=== PATIENT | female | born 2000 | race Caucasian/White ===

== ENCOUNTER → 2019-11-20 12:16 | Outpatient (CLI) | payer OTHER, SELFPAY ==
--- NOTE | 2019-11-20 12:18 | DI.RAD.S_ITS ---
PROCEDURE: XR FINGER LT MIN 2V INDICATIONS: L 4th finger pain/swelling/TTP PIP joint s/p injury TECHNIQUE: AP hand, 2 views of the ring finger(s) acquired. COMPARISON: None. FINDINGS: Bones: No displaced fractures or dislocations. No suspicious bony lesions. No significant degenerative changes of the 4th digit are evident. Incidental note is made of ulna minus very dense, which is not well characterized but may measure up to 3 mm. Soft tissues: No suspicious soft tissue calcifications. No unexpected radiopaque foreign bodies are appreciated. No evidence of soft tissue air. IMPRESSION: 1. No acute fracture of the left 4th digit. 2. Ulnar minus variance. Dictated by: Marshall Carranza M.D. on 11/20/2019 at 11:32 Approved by: Marshall Carranza M.D. on 11/20/2019 at 11:38
== END ==
PROVIDERS: PCP Registered Nurse Diabetes Educator; Referring Provider Registered Nurse Diabetes Educator; Visit Provider Registered Nurse Diabetes Educator
DX: S63.615A Unspecified sprain of left ring finger, initial encounter (principal); M79.645 Pain in left finger(s); M79.89 Other specified soft tissue disorders; X58.XXXA Exposure to other specified factors, initial encounter
CPT/HCPCS: 73140

== ENCOUNTER → 2020-09-01 12:00 | Outpatient (CLI) | payer OTHER, SELFPAY | PROVIDERS: PCP Registered Nurse Diabetes Educator; Visit Provider Physician Assistant | DX: N39.0 Urinary tract infection, site not specified (principal) | CPT/HCPCS: 87077; 87086; 87186 ==

== ENCOUNTER → 2020-10-05 13:09 | Outpatient (CLI) | payer OTHER, SELFPAY | PROVIDERS: PCP Registered Nurse Diabetes Educator; Visit Provider Registered Nurse Diabetes Educator | DX: N30.01 Acute cystitis with hematuria (principal) | CPT/HCPCS: 87086 ==